=== PATIENT | male | born 1980 | race Caucasian/White ===

== ENCOUNTER 2020-12-06 10:52 | Outpatient (NON) | payer OTHER, SELFPAY ==
[2020-12-06 22:42] LABS: SARS-CoV-2 RNA PCR Negative
== END 2020-12-06 10:53 ==
PROVIDERS: PCP Family Medicine; Visit Provider Nurse Practitioner Family
DX: Z20.822 Contact with and (suspected) exposure to COVID-19 (principal)
CPT/HCPCS: C9803; U0003; U0005

== ENCOUNTER 2024-01-13 18:54 | Emergency (ER) | payer OTHER, SELFPAY ==
[2024-01-13] VITALS (7 sets, daily range): BP systolic 143–196; BP diastolic 97–104; PULSE 67–93; RESP 13–30; TEMP 36.6; O2SAT 98–100
--- NOTE | 2024-01-13 22:41 | ED.GENADULT ---
HPI - General Adult General Chief complaint: Unspecified Stated complaint: HYPERTENSION Time Seen by Provider: 01/13/24 21:17 Source: patient Mode of arrival: ambulatory Limitations: no limitations History of Present Illness HPI narrative: Patient is a 43-year-old male who presents the ED with report of elevated blood pressures. Patient reports he saw his primary care doctor last week for a annual physical and his blood pressure was noted to be elevated in office. He denies previous history of hypertension. He was advised to monitor his blood pressure this week and follow-up. Patient states he has only checked his blood pressure twice in the last 1 week, one reading was in the 140s systolic, the other was today and in the 150s systolic. He did report having a very mild headache this morning, but related this to recent stress with work this week. States headache resolved on its own. Patient went to the gym today and denied having any further symptoms while exerting himself. He continue to check his blood pressure throughout the day and noted to be elevated each time. He then prompted here. Patient denies any current headache. Denies dizziness, lightheadedness, vision changes, chest pain, shortness breath. Related Data Allergies Allergy/AdvReac Type Severity Reaction Status Date / Time No Known Allergies Allergy Unverified 01/03/24 15:47 Review of Systems Review of Systems: CONSTITUTIONAL: Denies fever, chills, or sweats. ENT: Denies vision changes. CARDIOVASCULAR: Denies chest pain, palpitations, or edema. RESPIRATORY: Denies dyspnea. GASTROINTESTINAL: Denies abdominal pain, nausea, vomiting. NEUROLOGIC: See HPI. All systems reviewed & are unremarkable except as noted in HPI and below PMFSH Past Medical History Medical History Wellness examination Social History Social History Smoking status: Never smoker Second hand tobacco smoke exposure: No Alcohol intake: current Substance use: never Substance use type: does not use Living arrangements: with family Occupation/Education: occupation Gender identity (if verbalized by the patient): Male Sexual Orientation (if Verbalized by the Patient): Straight or Heterosexual Exam Narrative: GENERAL: Well appearing, well-nourished, non-toxic, in no acute distress. HEAD: Normocephalic, atraumatic. EYES: PERRL/EOMI RESPIRATORY: Airway patent, respirations nonlabored. Clear to auscultation bilaterally, no rales, rhonchi, wheezing. CARDIOVASCULAR: Regular rate and rhythm. Radial pulses easily palpable. MUSCULOSKELETAL: Moves all extremities. No gross deformities. SKIN: Warm, dry, normal color. NEURO: A&O X3. Speech clear. Cranial nerves II-XII grossly intact. Steady gait. No ataxic movements. No focal deficits. PSYCHIATRIC: Appropriate mood and affect. Normal interaction. Course Vital Signs Vital signs: Vital Signs Temperature 97.8 F 01/13/24 19:07 Pulse Rate 93 01/13/24 19:07 Respiratory Rate 18 01/13/24 19:07 Blood Pressure 196/98 H 01/13/24 19:07 Pulse Oximetry 100 01/13/24 19:07 Oxygen Delivery Room Air 01/13/24 19:07 Temperature 97.8 F 01/13/24 19:07 Pulse Rate 67 01/13/24 22:31 Respiratory Rate 16 01/13/24 22:31 Blood Pressure 148/97 H 01/13/24 22:31 Pulse Oximetry 99 01/13/24 22:31 Oxygen Delivery Room Air 01/13/24 19:07 Medical Decision Making MDM Narrative Medical decision making narrative: BP upon arrival 196/98. Did improve into the 140 systolic without intervention. Patient asymptomatic. Denying any neurologic complaints. Exam is unremarkable. Per ACEP guidelines, no further w/u necessary at this time. No signs or symptoms to suggest end organ damage at this time. Discussed diagnosis of hypertension, will start patient on low-dose lisinopril. Advised patient to cont
== END 2024-01-13 22:49 | disposition home or self-care (01) ==
PROVIDERS: Emergency Provider Physician Assistant; PCP Family Medicine
DX: R03.0 Elevated blood-pressure reading, without diagnosis of hypertension (principal)
CPT/HCPCS: 99284